=== PATIENT | female | born 2000 | race Caucasian/White ===

== ENCOUNTER → 2021-08-05 | Outpatient (CLI) | payer SELFPAY ==
[2021-08-12 20:18] LABS: HPV Reflexed? NOT INDICATED
== END | disposition home or self-care (01) ==
LOC: LABSPEC 08-09 13:59
PROVIDERS: Visit Provider Obstetrics & Gynecology
DX: Z12.4 Encounter for screening for malignant neoplasm of cervix (principal)
CPT/HCPCS: 88175; G0145

== ENCOUNTER → 2023-10-27 | Outpatient (CLI) | payer SELFPAY ==
--- NOTE | 2023-10-27 09:10 | US_ITS ---
STUDY: FIRST TRIMESTER OBSTETRICAL ULTRASOUND REASON FOR EXAM: Female, 23 years old VIABILITY LMP: September 13, 2023. TECHNIQUE: Transvaginal TECHNICAL QUALITY: Adequate. PRIOR ULTRASOUND: None. FINDINGS: There is visualization of a single gestational sac in a normal intrauterine position. The mean sac diameter (MSD) measures 1.15 cm, indicating an estimated gestational age (EGA) of 6 weeks, 0 days. The gestational sac shape is within normal limits. There is a visualized yolk sac. The yolk sac measures 2.5 mm. The placenta is non-visualized. There is visualization of a live embryo. The crown-rump length (CRL) measures 2.1 mm, indicating an estimated gestational age (EGA) of 6 weeks, 0 days. There is demonstrated cardiac activity with a heart rate of 109 bpm. The estimated gestation age (EGA) by LMP is 6 weeks, 2 days. The estimated date of delivery (QUETA) by LMP is June 19, 2024. The estimated gestation age (EGA) by US is 6 weeks, 0 days. The estimated date of delivery (QUETA) by US is June 21, 2024. The uterus measures 8.8 cm x 6.3 cm x 4.7 cm. There is no demonstrated uterine fibroid. The cervix is closed. The right ovary measures 3.1 cm x 2.1 cm x 2.4 cm. There is no right ovarian cyst. There is no visualized right adnexal mass or complex lesion. The left ovary measures 3.2 cm x 2.8 cm x 2.5 cm. 2 cysts are seen in the left ovary. The larger cyst measures 2.5 cm x 2.2 cm x 2.3 cm. There is no visualized left adnexal mass or complex lesion. There is no fluid in the cul de sac. US/Transvaginal w/Preg US IMPRESSION: Single live uterine gestation with mean gestational age of 6 weeks. Left ovarian cysts. Electronically Signed: Deshaun Fatima MD at 14:54 EDT ,
== END | disposition home or self-care (01) ==
LOC: OPUS 09:09
PROVIDERS: Referring Provider Advanced Practice Midwife; Visit Provider Advanced Practice Midwife
DX: N91.2 Amenorrhea, unspecified (principal)
CPT/HCPCS: 76817

== ENCOUNTER → 2023-11-15 | Outpatient (CLI) | payer SELFPAY ==
[2023-11-18 11:13] LABS: Chlamydia By Nucleic Acid AMP Negative (Negative); Gonococcus By Nucleic Acid AMP Negative (Negative)
== END | disposition home or self-care (01) ==
LOC: LABSPEC 15:24
PROVIDERS: Referring Provider Advanced Practice Midwife; Visit Provider Advanced Practice Midwife
DX: Z34.00 Encounter for supervision of normal first pregnancy, unspecified trimester (principal)
CPT/HCPCS: 87086; 87088; 87491; 87591

== ENCOUNTER → 2023-12-13 | Outpatient (CLI) | payer SELFPAY ==
[2023-12-13 17:05] LABS: Absolute Neutrophil Count 7.6 X10^3/uL (2.0-7.7); Basophil# 0.05 X10^3/uL; Basophil% 0.5 % (0-1); Eosinophils% 0.9 % (0-5); Hematocrit 38.2 % (37-47); Hemoglobin 13.2 g/dL (12.0-15.0); Lymphocyte % 21.5 % (19-41); Mean Corp Hgb Conc 34.6 g/dL (32-36); Mean Corpuscular Volume 86.8 fL (81-99); Mean Platelet Vol. 10.1 fl (6.2-12.0); Monocyte# 0.64 X10^3/uL; NRBC Flagged by Analyzer 0 % (0-5); Neutrophil # 7.55 X10^3/uL (2.7-7.7); Neutrophil % 70.6 % (47-70); Platelet Count 261 K/mm3 (150-450); RBC Distribution Width CV 12.2 % (11.6-14.6); RBC Distribution Width SD 39.1 fl (35.1-43.9); White Blood Count 10.7 K/mm3 (4.4-11.0)
[2023-12-13 17:31] LABS: Hemoglobin A1c 4.8 % (3.8-5.6)
[2023-12-13 17:58] LABS: HIV - WCH Non-Reactive (Nonreactive); Hepatitis B Surface Antigen Non-Reactive (Nonreactive); Hepatitis C Antibody Non-Reactive (Nonreactive); Rubella IgG Reactive (Nonreactive); Syphilis Antibodies Non-reactive
[2023-12-15 10:08] LABS: V-Zoster IgG (Immunity) 3628 index (Immune >165)
== END | disposition home or self-care (01) ==
PROVIDERS: Advanced Practice Midwife; Referring Provider Obstetrics & Gynecology; Visit Provider Obstetrics & Gynecology
DX: Z34.00 Encounter for supervision of normal first pregnancy, unspecified trimester (principal)
CPT/HCPCS: 36415; 83036; 85025; 86703; 86762; 86780; 86787; 86803; 86850; 86900; 86901; 87340

== ENCOUNTER → 2024-03-28 | Outpatient (CLI) | payer SELFPAY ==
[2024-03-28 14:29] LABS: Absolute Lymphocyte Count 1.71 X10^3/uL (0.83-4.51); Absolute Neutrophil Count 10.3 X10^3/uL (2.0-7.7); Basophil# 0.02 X10^3/uL; Basophil% 0.2 % (0-1); Eosinophil# 0.07 X10^3/uL; Eosinophils% 0.6 % (0-5); Hematocrit 35.1 % (37-47); Hemoglobin 12.1 g/dL (12.0-15.0); Lymphocyte # 1.71 X10^3/ul (0.83-4.51); Lymphocyte % 13.6 % (19-41); Mean Corp Hgb Conc 34.5 g/dL (32-36); Mean Corpuscular Hgb 31.7 pg (27.0-32.0); Mean Corpuscular Volume 91.9 fL (81-99); Mean Platelet Vol. 9.7 fl (6.2-12.0); Monocyte% 3.2 % (0-10); NRBC Flagged by Analyzer 0 % (0-5); Neutrophil # 10.27 X10^3/uL (2.7-7.7); Neutrophil % 81.6 % (47-70); Platelet Count 230 K/mm3 (150-450); RBC Distribution Width CV 12.8 % (11.6-14.6); RBC Distribution Width SD 42.4 fl (35.1-43.9); Red Blood Count 3.82 M/mm3 (4.2-5.4); White Blood Count 12.6 K/mm3 (4.4-11.0)
[2024-03-28 15:01] LABS: Glucose Challenge Gest 1H 50g 175 mg/dL (70-140)
[2024-03-28 15:43] LABS: HIV - WCH Non-Reactive (Nonreactive); Syphilis Antibodies Non-reactive
== END | disposition home or self-care (01) ==
LOC: BWCLAB 14:17
PROVIDERS: Nurse Practitioner Women's Health; Referring Provider Obstetrics & Gynecology; Visit Provider Obstetrics & Gynecology
DX: Z34.82 Encounter for supervision of other normal pregnancy, second trimester (principal)
CPT/HCPCS: 36415; 82950; 85025; 86703; 86780

== ENCOUNTER → 2024-04-02 | Outpatient (CLI) | payer SELFPAY ==
[2024-04-02 10:36] LABS: Bedside Glucose 76 mg/dL (74-106)
[2024-04-02 11:35] LABS: Glucose GTT-Gestation. Fasting 82 mg/dL (<105)
[2024-04-02 12:54] LABS: Glucose GTT-Gestational 1 Hr 181 mg/dL (<190)
[2024-04-02 13:19] LABS: Glucose GTT-Gestational 2 Hr 157 mg/dL (<165)
[2024-04-02 13:51] LABS: Glucose GTT-Gestational 3 Hr 135 L (<145)
== END | disposition home or self-care (01) ==
LOC: LAB 10:00
PROVIDERS: Referring Provider Nurse Practitioner Women's Health; Visit Provider Nurse Practitioner Women's Health
DX: O99.810 Abnormal glucose complicating pregnancy (principal); Z3A.00 Weeks of gestation of pregnancy not specified
CPT/HCPCS: 36415; 82951; 82952; 82962

== ENCOUNTER 2024-05-13 11:30 | Outpatient (RCR) | payer SELFPAY | END 2024-05-31 23:59 | LOC: NS 11:30 | PROVIDERS: Referring Provider Nurse Practitioner Women's Health; Visit Provider Nurse Practitioner Women's Health | DX: Z71.3 Dietary counseling and surveillance (principal); O24.419 Gestational diabetes mellitus in pregnancy, unspecified control; Z3A.00 Weeks of gestation of pregnancy not specified | CPT/HCPCS: 97802; 97803 ==

== ENCOUNTER → 2024-05-30 | Outpatient (CLI) | payer SELFPAY | END | disposition home or self-care (01) | PROVIDERS: Referring Provider Obstetrics & Gynecology; Visit Provider Obstetrics & Gynecology | DX: Z34.02 Encounter for supervision of normal first pregnancy, second trimester (principal) | CPT/HCPCS: 87081 ==

== ENCOUNTER → 2024-05-31 | Outpatient (CLI) | payer SELFPAY ==
--- NOTE | 2024-05-31 13:27 | US_ITS ---
PROCEDURE: OB LIMITED WITH BIOMETRICS REASON FOR EXAM: growth. COMPARISON: None. FINDINGS Number: 1 Position: Vertex Placental Position: Posterior and not low-lying. Placental Abnormalities: None. DIMENSIONS: Biparietal Diameter: 8.8 cm: 35 weeks and 4 days: 27 percentile/ Head Circumference: 31.8 cm: 35 weeks and 5 days: 6 percentile/ Abdominal Circumference: 31.5 cm: 35 weeks and 3 days: 21 percentile/ Femur Length: 6.7 cm: 34 weeks and 4 days: 4 percentile/ ESTIMATED WEIGHT: 2660 g ESTIMATED WEIGHT PERCENTILE (24+ weeks): 18 percentile ESTIMATED GESTATIONAL AGE: Baseline: 37 weeks and 0 days By Ultrasound: 35 weeks and 3 days ESTIMATED DATE OF DELIVERY: Baseline: June 21, 2024 By Ultrasound: July 02, 2024 BIOPHYSICAL ASSESSMENT: Amniotic Fluid Volume: Subjectively normal. Amniotic Fluid Index: 17.4 (8-24 cm normal range) Cardiac Motion: 131 beats per minute (average) Trunk and Limb Motion: Present. MATERNAL ANATOMY: Adnexa: Neither maternal ovary is successfully identified. US/OB Limited With Biometrics IMPRESSION: Single live intrauterine gestation with a mean gestational age of 35 weeks and 3 days. Low percentile for head circumference and femur length. Reading Location: [facility]
== END | disposition home or self-care (01) ==
PROVIDERS: Referring Provider Advanced Practice Midwife; Visit Provider Advanced Practice Midwife
DX: O24.419 Gestational diabetes mellitus in pregnancy, unspecified control (principal); Z3A.00 Weeks of gestation of pregnancy not specified
CPT/HCPCS: 76816

== ENCOUNTER 2024-06-21 19:17 | Inpatient (IN) | payer SELFPAY ==
[2024-06-21 19:44] VITALS: BP 105/62; PULSE 89; RESP 16; TEMP 36.5; O2SAT 96
[2024-06-21 19:46] VITALS: BMI 34.5
[2024-06-21] MEDS: Lactated Ringers 1,000 ML 50 ML IV (20:03)
[2024-06-21 20:21] LABS: Absolute Lymphocyte Count 1.55 X10^3/uL (0.83-4.51); Absolute Neutrophil Count 7.1 X10^3/uL (2.0-7.7); Basophil# 0.05 X10^3/uL; Basophil% 0.5 % (0-1); Eosinophil# 0.12 X10^3/uL; Eosinophils% 1.2 % (0-5); Hematocrit 37.1 % (37-47); Hemoglobin 13.2 g/dL (12.0-15.0); Lymphocyte # 1.55 X10^3/ul (0.83-4.51); Lymphocyte % 16.1 % (19-41); Mean Corp Hgb Conc 35.6 g/dL (32-36); Mean Corpuscular Hgb 32.3 pg (27.0-32.0); Mean Corpuscular Volume 90.7 fL (81-99); Mean Platelet Vol. 10.6 fl (6.2-12.0); Monocyte# 0.74 X10^3/uL; Monocyte% 7.7 % (0-10); NRBC Flagged by Analyzer 0 % (0-5); Neutrophil # 7.05 X10^3/uL (2.7-7.7); Neutrophil % 73.5 % (47-70); Platelet Count 178 K/mm3 (150-450); RBC Distribution Width CV 12.4 % (11.6-14.6); RBC Distribution Width SD 40.7 fl (35.1-43.9); Red Blood Count 4.09 M/mm3 (4.2-5.4); White Blood Count 9.6 K/mm3 (4.4-11.0)
[2024-06-21 20:42] LABS: Bedside Glucose 85 mg/dL (74-106)
[2024-06-21 21:11] LABS: Syphilis Antibodies Nonreactive (Nonreactive)
--- NOTE | 2024-06-21 21:31 | HP.PCM.OB_ITS ---
HPI - General General Date of Admission: 06/21/24 HPI Narrative VIMAL LANGFORD, is a 24 F who presents at 40 weeks for IOL due to GDM, diet controlled. active fetus, no vb/lof. occ ctx. Maternal Data Information QUETA Calculator Estimated Delivery Date Method Current WG Current Estimate 06/21/24 Ultrasound #1 40w 0d PFSH PFSH Medical History Maternal varicella, non-immune Early stage of Home Medications ?Medication ?Instructions ?Recorded ?Last Taken ?Type multivit-min no.71-iron fum 28 cap PO 06/21/24 History mg-folate no.1 1 mg-dha 300 mg capsule (PNV-[place]) blood sugar diagnostic (Blood #120 ea 04/02/24 Unknown Rx Glucose Test strips) blood-glucose meter #1 ea 04/02/24 Unknown Rx lancets 30 gauge (Droplet Lancets) #200 ea 04/02/24 Un known Rx ondansetron 4 mg disintegrating 4 mg PO Q6H PRN nausea and 06/20/24 06/20/24 Rx tablet vomiting #30 tabs Allergy/AdvReac Type Severity Reaction Status Date / Time No Known Allergies Allergy Verified 06/21/24 19:56 Social History adopted: No household members: spouse current occupational status: employed current occupation: [employer] pets and animals: Yes pets and animals: dog(s) history of recent travel: Yes out of state: No out of country: No sexually active: Yes Smoking Status: Never smoker alcohol intake: current alcohol intake frequency: holidays/special occasions only details: Not while substance use type: does not use well-balanced diet: about half the time caffeine: Yes Type: carbonated beverages Number of servings: 1 eating out: 1-3 times/week during the past year weight has: remained stable what type of physical activity do you participate in: none frequency: does not exercise devi/anabaptism: Taoist seatbelt use: always do you feel safe at home: Yes additional social history: - Jeared- Tariq History 1 Elective abortions Hx Para 0 Spontaneous abortions Hx # Term Pregnancies Ectopic pregnancies Hx # Pregnancies Multiple births # of living children Visit Details Expected Delivery Route/Plan Labor Preferences- CB/BF classes: no labor support person: Jequita labor intervention preferences: [] pain management options preferred: hopes for limited intervention cut cord/dad catch: maybe : yes PP control planned: [] discussed possible routes of delivery and associated risks: [] special requests: [] Plans Covid status: [] Flu vaccine: given Tdap vaccine: given Rhogam: NA LARC form signed: yes Problem list reviewed and updated with the most current plan of care details and appropriate orders placed. Relevant counseling for the gestational age provided. Continue routine care and follow up unless otherwise noted in visit notes/problem list details OB Flowsheet Initial Weight: 156 lb Date -?-?-?-?-?-?-?-?-?-?-?-?- EGA Weight BP Urine Prot -?-?-?-?-?-?-?-?-?-?-?-?- Glucose FHR FuHt Pres Dilation -?-?-?-?-?-?-?-?-?-?-?-?- Effaced St Visit Note 11/15/23 -?-?-?-?-?-?-?-?-?-?-?-?- 8w 5d 156 lb (+0 oz) 103/65 -?-?-?-?-?-?-?-?-?-?-?-?- 170 -?-?-?--?-?-?-?-?-?-?-?-?- KW- NOB in [facility] pe.US done at [facility]. Esa TURNERT. 12/13/23 -?-?-?-?-?-?-?-?-?-?-?-?- 12w 5d 152 lb (-4 lb) 107/70 Negative -?-?-?-?-?-?-?-?-?-?-?-?- Negative 150 -?-?-?-?-?-?-?-?-?-?-?-?- SM- no vb crampi ng 01/08/24 -?-?-?-?-?-?-?-?-?-?-?-?- 16w 3d 151 lb (-5 lb) 109/68 Negative -?-?-?-?-?-?-?-?-?-?-?-?- Negative 150 -?-?-?-?-?-?-?-?-?-?-?-?- kw- no vb/ cramp ing. has anatomy US scheduled. blood work reviewed from last visit. kw- no vb/ cramping. has arin elaine US ordered. blood work reviewed from last visit. many questions answered today 02/07/24 -?-?-?-?-?-?-?-?-?-?-?-?- 20w 5d 156 lb 6 oz (+6 oz) 103/69 Negative -?-?-?-?-?-?-?-?-?-?-?-?- Negative 150 -?-?-?-?-?-?-?-?-?-?-?-?- JV- no lof, vagi nal bleeding , or cramping. Anatomy scan shows a low lying placenta 1.1 cm from os. work restriction letter given. pelvic rest discussed. 03/04/24 -?-?-?-?-?-?-?-?-?-?-?-?- 24w 3d 158 lb 8 oz (+2 lb 8 oz) 100/68 Negative -?-?-?-?-?-?-?-?-?-?-?-?- Negative 147 24 -?-?-?-?-?-?-?-?-?-?--?-?- -No VB, LOFAna M means FM. Larc. Flu given 03/28/24 -?-?-?-?-?-?-?-?-?-?-?-?- 27w 6d 163 lb 6 oz (+7 lb 6 oz) 109/70 Negative -?-?-?-?-?-?-?-?-?-?-?-?- Negative 141 27 -?-?-?-?-?-?-?-?-?-?-?-?- -No VB, LOFAna M shafferies concerns. 28 wk labs pending 04/11/24 -?-?-?-?-?-?-?--?-?-?-?-?- 29w 6d 166 lb (+10 lb) 105/64 Negative -?-?-?-?-?-?-?-?-?-?-?-?- Negative 147 29 -?-?-?-?-?-?-?-?-?-?-?-?- JV- fasting gluc ose levels are all at or below 95/96. pt to eat more fat/protein before bedtime. normal 2 hr pp. no lof, vaginal bleeding, or dec fm. 04/24/24 -?-?-?-?-?-?-?-?-?-?-?-?- 31w 5d 168 lb 5 oz (+12 lb 5 oz) 110/70 Negative -?-?-?-?-?-?-?-?-?-?-?-?- Negative 145 32 -?-?-?-?-?-?-?-?-?-?-?-?- KW- no vb/lof/ct x. good fm BS reviewed and fastings are around 88/90. doing well. 36 week US ordered. 05/08/24 -?-?-?-?-?-?-?-?-?-?-?-?- 33w 5d 173 lb 4 oz (+17 lb 4 oz) 98/66 Negative -?-?-?-?-?-?-?-?-?-?-?-?- Negative 132 34 -?-?-?-?-?-?-?-?-?-?-?-?- MH-No VB, LOF> G ood FM. BS reviewed and good control. States has helped seeing dietitian 05/23/24 -?-?-?-?-?-?-?-?-?-?-?-?- 35w 6d 173 lb (+17 lb) 105/67 Negative -?-?-?-?-?-?--?-?-?-?-?-?- Negative 140 35 -?-?-?-?-?-?-?-?-?-?-?-?- SM- no vb lof go od fm nr oegualr ctx discussed tdap BS controlled US scheduled 05/30/24 -?-?-?-?-?-?-?-?-?-?-?-?- 36w 6d 174 lb (+18 lb) 114/77 -?-?-?-?-?-?-?-?-?-?-?-?- 145 36 Cephalic 1 -?-?-?-?-?-?-?-?-?-?-?-?- 60 -2 JV- no lof , vaginal bleeding or dec fm. gbs collected today. normal glucose log. has growth scan tomorrow. 06/07/24 -?-?-?-?-?-?-?-?-?-?-?-?- 38w 0d 173 lb 8 oz (+17 lb 8 oz) 108/74 Negative -?-?-?-?-?-?-?-?-?-?-?-?- Negative 145 38 Cephalic 1 .5 -?-?-?-?-?-?-?-?-?-?-?-?- 60 -2 KW- no vb/ lof/ctx. good fm. Rash on belly and legs-possibly Pupps. Benadryl and Claritin. 06/14/24 -?-?-?-?-?-?-?-?-?-?-?-?- 39w 0d 177 lb 6 oz (+21 lb 6 oz) 113/78 Negative -?-?-?-?-?-?-?-?-?-?-?-?- Negative 130 38 Cephalic 1 .5 -?-?-?-?-?-?-?-?-?-?-?-?- 60 -2 KW- no vb/ lof/ctx. good fm. IOL set up for 40 weeks. 06/20/24 -?-?-?-?-?-?-?-?-?-?-?-?- 39w 6d 177 lb 8 oz (+21 lb 8 oz) 97/66 Negative -?-?-?-?-?-?-?-?-?-?-?-?- Negative 145 37 Cephalic 1 .5 -?-?-?-?-?-?-?-?-?-?-?-?- 60 -2 JV- glucos e log reviewed. pt had stomach bug last night. sending in zofran. if no improvement today or tonight she is instructed to come to L&D for fluids prior to her induction in the morning. NST FHR Rate Baby A Baseline: 125 Variability:: Moderate Accelerations:: 15 x 15 Decelerations:: None NST Reactive:: Yes FHR Category:: Category I Uterine Activity:: irregular Vital Signs Vital Signs Vital Signs: 06/21/24 19:44 06/21/24 19:44 06/21/24 19:44 Temperature Temperature Source Pulse Rate 89 Respiratory Rate Blood Pressure 105/62 BP Systolic 105 BP Diastolic 62 Pulse Ox 96 06/21/24 19:44 06/21/24 19:44 06/21/24 19:44 Temperature 97.7 F L Temperature Source Temporal Pulse Rate Respiratory Rate 16 Blood Pressure BP Systolic BP Diastolic Pulse Ox Weight Weight: 176 lb 12.8 oz Body Mass Index (BMI) 34.5 Physical Exam Const alert, oriented x3 and no apparent distress General Appearance: cooperative, comfortable and well kempt Orientation / Consciousness: awake and oriented to person Exam Limitations: no limitations HEENT normocephalic Neck full ROM Chest inspection of chest normal Resp normal respiratory effort, normal air movement and no retractions Effort and Inspection: able to speak in complete sentences and symmetric chest movement Cardio regular rate Peripheral Pulses: pulses 2+ throughout GI normal to inspection, nondistended, normoactive bowel sounds Inspection: gravid no CVA tenderness and appearance of the vagina normal External Female Exam: normal appearance of the urethra; Negative for external lesion OB / External & Speculum: external exam normal Manual OB Exam: estimated gestational size appropriate, presentation cephalic, dilated 1.5, effaced 60 and station -2 Uterus Palpation: Negative for uterus tender Extremity normal to inspection Skin no rashes or lesions noted Neuro deep tendon reflexes 2+ bilaterally and gait normal Motor Exam: strength 5/5 throughout and clonus absent Psych Activity / Motor Behavior: appropriate eye contact Speech: normal speech Labs Labs Labs: Blood Type A POSITIVE Antibody Screen NEGATIVE Hct 37.1 % (37-47) Hgb 13.2 g/dL (12.0-15.0) Obstetrics Ultrasound Syphilis Total Ab Nonreactive (Nonreactive) VZV IgG Antibody 3628 index (Immune >165) Rubella IgG Antibody Reactive (Nonreactive) Hep Bs Antigen Non-Reactive (Nonreactive) Hepatitis C Antibody Non-Reactive (Nonreactive) Chlamydia DNA ([place]AS[place]) Negative (Negative) N.gonorrhoeae DNA (KASIA) Negative (Negative) HIV 1&2 Antibody Non-Reactive (Nonreactive) Glucose 1 Hr 50 gm 175 mg/dL (70-140) H Gest Glucose Tolerance MG/DL Assessment & Plan (1) Encounter for induction of labor: COMMENT: pit/mckeon bulb (2) Gestational diabetes: QUALIFIERS: Gestational diabetes mellitus control: diet-controlled Trimester: third trimester Qualified Code(s): O24.410 - Gestational diabetes mellitus in , diet controlled COMMENT: diet controlled. 36 week growth US, delivery by 40 weeks PLAN: -diabetes protocol for glucose monitoring. (3) Obesity affecting : QUALIFIERS: Trimester: second trimester Obesity type affecting : unspecified obesity Qualified Code(s): O99.212 - Obesity complicating , second trimester COMMENT: HgA1c nl. encouraged healthy weight gain. BMI 30 (4) Supervision of normal first : QUALIFIERS: Trimester: second trimester Qualified Code(s): Z34.02 - Encounter for supervision of normal first , second trimester COMMENT: PRR,, QUETA 06/21/24, boy connie or bryce Jeared (5) : QUALIFIERS: Weeks of gestation: 39 weeks Qualified Code(s): Z3A.39 - 39 weeks gestation of COMMENT: Neg GBS declined genetic & carrier testing, PLAN: Plan Patient presents IOL, plan management for with mckeon bulb/pitocin/AROM. Pain management: plans epidural. GBS negative. Management of any complications: none I have reviewed the [facility] and made any clinically relevant updates. updated on admission, exam and poc.
[2024-06-21] MEDS: Oxytocin 15 Units/NS 250ml 15 UNITS/250 ML IV.SOLN 2 UNITS IV (21:40)
[2024-06-21 21:52] VITALS: BP 96/56; PULSE 89; RESP 20; TEMP 36.7; O2SAT 98
[2024-06-21 22:05] LABS: Bedside Glucose 88 mg/dL (74-106)
[2024-06-21 22:36] VITALS: BP 108/64; PULSE 92; O2SAT 98
[2024-06-21 22:37] VITALS: RESP 16; TEMP 36.6
[2024-06-21 23:50] VITALS: PULSE 89; O2SAT 95
[2024-06-21 23:51] VITALS: BP 97/53; PULSE 85; RESP 16; TEMP 36.4
[2024-06-22] VITALS (64 sets, daily range): BP systolic 91–136; BP diastolic 53–84; PULSE 60–109; RESP 12–19; TEMP 36.4–37.7; O2SAT 93–99
[2024-06-22] MEDS: fentaNYL 100 MCG/2 ML Ampul IV (00:49)
[2024-06-22] MEDS: Lactated Ringers 1,000 ML 50 ML IV (01:27)
[2024-06-22 02:22] LABS: Bedside Glucose 84 mg/dL (74-106)
[2024-06-22] MEDS: fentaNYL-bupivacaine (epidural) 100 ML BAG EPIDURAL ×3 (04:04→15:35)
[2024-06-22] MEDS: Lactated Ringers 1,000 ML 200 ML IV ×4 (04:04→20:08)
[2024-06-22 06:27] LABS: Bedside Glucose 93 mg/dL (74-106)
[2024-06-22] MEDS: LACTATED RINGERS 500 ML 999 ML IV ×3 (08:18→15:05)
[2024-06-22 10:22] LABS: Bedside Glucose 83 mg/dL (74-106)
--- NOTE | 2024-06-22 10:55 | PCM.PN.CNM ---
Subjective Subjective pt comfortable with epidural Objective Data Objective Data Vital Signs: Vital Signs Temp Pulse Resp BP Pulse Ox 98.5 F 82 16 117/72 97 06/22/24 09:55 06/22/24 09:54 06/22/24 09:55 06/22/24 09:54 06/22/24 09:53 Weight: 176 lb 12.8 oz Body Mass Index (BMI) 34.5 Intake & Output: Intake and Output for Last 24 Hours 06/20/24 06/21/24 06/22/24 23:59 23:59 23:59 Intake Total 406.25 / 406.25 2135.36 / 2135.36 Output Total 200 / 200 Balance 406.25 / 406.25 1935.36 / 1935.36 Lab / Micro Data 06/21/24 20:00 Labs: Laboratory Results - last 24 hr 06/21/24 20:00: WBC 9.6, RBC 4.09 L, Hgb 13.2, Hct 37.1, MCV 90.7, MCH 32.3 H, MCHC 35.6, RDW Std Deviation 40.7, RDW Coeff of [place] 12.4, Plt Count 178, MPV 10.6, Immature Gran % (Auto) 1.000 H, Neut % (Auto) 73.5 H, Lymph % (Auto) 16.1 L, [place] % (Auto) 7.7, Eos % (Auto) 1.2, Baso % (Auto) 0.5, Absolute Neuts (auto) 7.1, Absolute Lymphs (auto) 1.55, Nucleated RBC % 0, Syphilis Total Ab Nonreactive, Blood Type A POSITIVE, Antibody Screen NEGATIVE 06/21/24 20:10: POC Glucose 85 06/21/24 21:47: POC Glucose 88 06/22/24 02:00: POC Glucose 84 06/22/24 06:07: POC Glucose 93 06/22/24 10:01: POC Glucose 83 Physical Exam Resp normal respiratory effort and normal air movement Effort and Inspection: able to speak in complete sentences GI normal to inspection, nondistended, normoactive bowel sounds Manual OB Exam: presentation cephalic, dilated 5, effaced 90 and station -1 Amniotic Fluid: clear amniotic fluid Assessment & Plan (1) Encounter for induction of labor: COMMENT: pit/mckeon bulb (2) Gestational diabetes: QUALIFIERS: Gestational diabetes mellitus control: diet-controlled Trimester: third trimester Qualified Code(s): O24.410 - Gestational diabetes mellitus in , diet controlled COMMENT: diet controlled. 36 week growth US, delivery by 40 weeks PLAN: Plan current tracing:cat 1 FHT: Moderate variability reactive [place]: Contractions reviewed tracing abnormalities since last note: cat 2 tracing for prolonged decel to 90-100s 3 minutes- resolving with pit break, repositioning and IV fluid bolus. currently /-1. internal monitors placed. returned to baseline with accels by 1058 A/P: restart pit after 30 minutes of cat 1 tracing
[2024-06-22] MEDS: Amnioinfusion- 0.9% NS 1,000 ML IV.SOLN. 1000 ML INTRA-UTER ×2 (11:38→17:39)
[2024-06-22 14:25] LABS: Bedside Glucose 71 mg/dL (74-106)
[2024-06-22] MEDS: DiphenhydrAMINE 50 MG/ML Syringe IV (15:35)
--- NOTE | 2024-06-22 15:41 | PCM.PN.CNM ---
Objective Data Objective Data Vital Signs: Vital Signs Temp Pulse Resp BP Pulse Ox 98.7 F 67 18 103/58 L 99 06/22/24 15:28 06/22/24 15:32 06/22/24 15:28 06/22/24 15:27 06/22/24 15:32 Weight: 176 lb 12.8 oz Body Mass Index (BMI) 34.5 Intake & Output: Intake and Output for Last 24 Hours 06/20/24 06/21/24 06/22/24 23:59 23:59 23:59 Intake Total 406.25 / 406.25 4138.46 / 4138.46 Output Total 200 / 200 Balance 406.25 / 406.25 3938.46 / 3938.46 Lab / Micro Data 06/21/24 20:00 Labs: Laboratory Results - last 24 hr 06/21/24 20:00: WBC 9.6, RBC 4.09 L, Hgb 13.2, Hct 37.1, MCV 90.7, MCH 32.3 H, MCHC 35.6, RDW Std Deviation 40.7, RDW Coeff of [place] 12.4, Plt Count 178, MPV 10.6, Immature Gran % (Auto) 1.000 H, Neut % (Auto) 73.5 H, Lymph % (Auto) 16.1 L, [place] % (Auto) 7.7, Eos % (Auto) 1.2, Baso % (Auto) 0.5, Absolute Neuts (auto) 7.1, Absolute Lymphs (auto) 1.55, Nucleated RBC % 0, Syphilis Total Ab Nonreactive, Blood Type A POSITIVE, Antibody Screen NEGATIVE 06/21/24 20:10: POC Glucose 85 06/21/24 21:47: POC Glucose 88 06/22/24 02:00: POC Glucose 84 06/22/24 06:07: POC Glucose 93 06/22/24 10:01: POC Glucose 83 06/22/24 14:03: POC Glucose 71 L NST FHR Rate Baby A Baseline: 130 Variability:: Moderate Accelerations:: 15 x 15 Decelerations:: None NST Reactive:: Yes FHR Category:: Category I Uterine Activity:: q2 Assessment & Plan (1) Encounter for induction of labor: COMMENT: pit/mckeon bulb (2) Gestational diabetes: QUALIFIERS: Gestational diabetes mellitus control: diet-controlled Trimester: third trimester Qualified Code(s): O24.410 - Gestational diabetes mellitus in , diet controlled COMMENT: diet controlled. 36 week growth US, delivery by 40 weeks PLAN: Plan s/p mckeon bulb and pitocin. pitocin has been titrated due to tolerance, requiring restarts. current tracing: with mod variability with accels. 1452 with prolong decel x5 minutes to 90s, recovering with position changes, ivf bolus and pitocin break. currently in hands and knee, cervical exam 8-9cm posterior, 7cm anterior with swollen cervix from 11-1oclock FHT: Moderate variability reactive no decelerations category I tracing [place]: q2 Contractions reviewed tracing abnormalities since last note: see above A/P: benadryl iv for cervical swelling intrauterine resuscitation per protocol for cat [address] durand updated on exam, poc and agrees with management.
[2024-06-22 16:24] LABS: Bedside Glucose 74 mg/dL (74-106)
[2024-06-22 17:23] LABS: Bedside Glucose 70 mg/dL (74-106)
[2024-06-22 19:01] LABS: Bedside Glucose 79 mg/dL (74-106)
[2024-06-22 20:08] LABS: Bedside Glucose 81 mg/dL (74-106)
[2024-06-22 21:06] LABS: Bedside Glucose 87 mg/dL (74-106)
[2024-06-22 22:44] LABS: Bedside Glucose 88 mg/dL (74-106)
[2024-06-22 23:16] LABS: Bedside Glucose 93 mg/dL (74-106)
[2024-06-22] MEDS: Acetaminophen 500 MG Tablet PO (23:47)
[2024-06-23] VITALS (43 sets, daily range): BP systolic 94–120; BP diastolic 52–72; PULSE 78–122; RESP 16–18; TEMP 36.1–37.5; O2SAT 96–100
[2024-06-23] MEDS: Oxytocin 15 Units/NS 250ml 15 UNITS/250 ML IV.SOLN 999 UNITS IV (00:10)
[2024-06-23] MEDS: Methylergonovine 0.2 MG/ML Ampul IM (00:12)
[2024-06-23] MEDS: miSOPROStol 200 MCG Tablet 1000 MCG RC (00:12)
[2024-06-23] MEDS: Oxytocin 15 Units/NS 250ml 15 UNITS/250 ML IV.SOLN 83 UNITS IV (00:24)
--- NOTE | 2024-06-23 00:30 | EX.PCM.OBVAG ---
Assessment & Plan (1) (spontaneous vaginal delivery): COMMENT: Lc IOL- GDM. boy: Shawn Maternal Data Information QUETA Calculator Estimated Delivery Date Method Current WG Current Estimate 06/21/24 Ultrasound #1 40w 2d Vaginal Delivery Maternal Presentation Maternal Presentation: at 40 weeks IOL for GDM, s/p pit/mckeon. Type of Induction: Pitocin and Mckeon Bulb Vaginal Delivery Information Procedure Performed: Spontaneous Vaginal Delivery Date of Procedure: 06/23/24 Pre-Procedure Diagnosis: Type of anesthesia: Epidural Estimated Blood Loss: 300 Time of Delivery: 11:59 Findings Description of procedure: Patient began pushing and delivered the head in the FRANKO presentation. The head was delivered atraumatically. The anterior and posterior shoulders delivered without complication followed by the rest of the infant and the infant was placed on the maternal abdomen. Delayed cord clamping was employed for approximately 60 seconds. Cord was clamped and cut and gentle traction was applied to the cord and the placenta delivered spontaneously immediately following it was noted to be intact with three-vessel cord. The perineum and vagina were inspected and noted to have 1st degree laceration repaired with 3-0 vicryl . EBL was 300cc, brisk bleeding noted and cytotec, methergine and pitocin provided to have hemostasis. Patient and tolerated delivery well. Presentation: Vertex Amniotic Membrane Rupture Type: Artificial Amniotic Fluid Description: Clear Placental Delivery Description: Spontaneous Placenta Disposition: [facility] Specimen collected: No Cord Vessel Description: 3 Vessels Cord Entanglement: None A Gender: Male (1 minute): 6 (5 minute): 9 Delayed Cord Clamping: Yes Post Vaginal [place]i Medications given after delivery: IV Pitocin and IM Methergin Laceration: 1st degree Complication Complications: No Procedures Urinary/Genital [id number]: [id number] Vaginal Delivery [facility]
--- NOTE | 2024-06-23 00:33 | DCINST_ITS ---
Discharge Instructions Diet Discharge Diet: No restrictions DC O2, CPAP, BIPAP needs Home O2 Discharge instructions: No Dressing / Incision Discharge Activity: May Not Drive and May Shower May resume sexual activity in: 6 weeks Weight Bearing Status: Full weight bearing Dressing / Incision Call your doctor if your incision/area has: Sudden Increased Bleeding, Increased Pain/ Swelling and Foul Smelling Discharge Call your doctor if you observe: Fever of 101 or Higher, Numbness or Tingling, Change in Color, Inability to urinate, Inability to have a bowel movement, Using more than 1 pad per hour, Shortness of breath, Dizziness, Fainting spells, Chest pain, Calf discomfort and Uncontrolled pain Follow Up Care Please Follow Up With: Marybeth Alicea CNM When: 6 weeks , please call office to make an appointment. Congratulations on the of your baby! Test Results: Test results from this visit will be discussed in further detail at your follow- up appointment, if applicable. Discharge Plan Admission Admit Date/Time: 06/21/24 19:17 Attending Provider: Marybeth Alicea Primary Care Provider: Care PhysicianSadia Primary Discharge Orders/Prescriptions Prescriptions: No Action PNV-[place] 28-1-300 mg capsule PO ondansetron 4 mg tablet,disintegrating 4 mg PO Q6H PRN (Reason: nausea and vomiting) Qty: 30 0RF (DME) Blood Glucose Test Strip See Rx Instructions .ROUTE .MEDSUPPLY Qty: 120 6RF Rx Instructions: Check blood sugars Fasting and 2 hours after breakfast, lunch, and dinner. (DME) blood-glucose meter Misc See Rx Instructions .ROUTE .MEDSUPPLY Qty: 1 0RF Rx Instructions: As directed (DME) lancets [Droplet Lancets] 30 gauge misc See Rx Instructions .ROUTE .MEDSUPPLY Qty: 200 6RF Rx Instructions: Check blood sugars fasting and 2 hours after breakfast, lunch, and supper. Referrals / Follow Up: Care Physician,Sadia Primary [Primary Care Provider] -
[2024-06-23 02:13] LABS: Bedside Glucose 86 mg/dL (74-106)
--- NOTE | 2024-06-23 10:54 | PCM.PN.CNM ---
Subjective Subjective Patient doing well without complaints. Tolerating PO. Ambulating and voiding without difficulty. Feeding well. Denies chest pain, shortness of breath, calf pain/swelling, fevers, chills, lightheadedness. Objective Data Objective Data Vital Signs: Vital Signs Temp Pulse Resp BP Pulse Ox O2 Del Method 99.2 F H 112 H 16 100/59 L 97 Room Air 06/23/24 08:52 06/23/24 08:52 06/23/24 08:52 06/23/24 08:52 06/23/24 08:52 06/23/24 08:52 Oxygen Delivery Method Room Air Weight: 176 lb 12.8 oz Body Mass Index (BMI) 34.5 Intake & Output: Intake and Output for Last 24 Hours 06/21/24 06/22/24 06/23/24 23:59 23:59 23:59 Intake Total 406.25 / 406.25 5655.19 / 5655.19 1340 / 1340 Output Total 600 / 600 300 / 300 Balance 406.25 / 406.25 5055.19 / 5055.19 1040 / 1040 Lab / Micro Data 06/21/24 20:00 Labs: Laboratory Results - last 24 hr 06/22/24 14:03: POC Glucose 71 L 06/22/24 16:03: POC Glucose 74 06/22/24 17:02: POC Glucose 70 L 06/22/24 18:23: POC Glucose 79 06/22/24 19:48: POC Glucose 81 06/22/24 20:44: POC Glucose 87 06/22/24 21:59: POC Glucose 88 06/22/24 22:57: POC Glucose 93 06/23/24 01:50: POC Glucose 86 Physical Exam Const alert and oriented x3 Chest inspection of chest normal and inspection of breasts normal Resp normal respiratory effort and normal air movement Cardio regular rate and regular rhythm GI normal to inspection, nondistended, normoactive bowel sounds Uterus Palpation: uterus fundus firm Extremity normal to inspection, full ROM and no pedal edema Skin no rashes or lesions noted Psych mental status grossly normal Assessment & Plan (1) (spontaneous vaginal delivery): COMMENT: Lc IOL- GDM. boy: Shawn (2) Gestational diabetes: QUALIFIERS: Gestational diabetes mellitus control: diet-controlled Trimester: third trimester Qualified Code(s): O24.410 - Gestational diabetes mellitus in , diet controlled COMMENT: diet controlled. 36 week growth US, delivery by 40 weeks PLAN: Plan s/p PPD # 1 1. routine post delivery care 2. breast feeding- support given. to see today for additional support due to blood sugars. 3. rh positive 4. rubella immune 5. plan d/c home tomorrow
[2024-06-23] MEDS: Naproxen 500 MG Tablet PO (18:03)
[2024-06-23] MEDS: 0.9% Saline Lock 10 ML Syringe IV (18:03)
[2024-06-24] VITALS (11 sets, daily range): BP systolic 99–109; BP diastolic 50–67; PULSE 79–98; RESP 16; TEMP 36.1–36.7; O2SAT 97–99
[2024-06-24] MEDS: Naproxen 500 MG Tablet PO (03:04)
[2024-06-24] MEDS: 0.9% Saline Lock 10 ML Syringe IV (03:06)
[2024-06-24 06:26] LABS: Bedside Glucose 86 mg/dL (74-106)
--- NOTE | 2024-06-24 08:52 | PN.OBGYN_ITS ---
Subjective Subjective Patient doing well without complaints. Tolerating PO. Ambulating and voiding without difficulty. Feeding well. Denies chest pain, shortness of breath, calf pain/swelling, fevers, chills, lightheadedness. Objective Data Objective Data Vital Signs: Vital Signs Temp Pulse Resp BP Pulse Ox O2 Del Method 97.5 F L 79 16 99/50 L 98 Room Air 06/24/24 03:45 06/24/24 08:47 06/24/24 03:45 06/24/24 08:46 06/24/24 08:47 06/24/24 03:45 Oxygen Delivery Method Room Air Weight: 176 lb 12.8 oz Body Mass Index (BMI) 34.5 Intake & Output: Intake and Output for Last 24 Hours 06/22/24 06/23/24 06/24/24 23:59 23:59 23:59 Intake Total 5655.19 / 5655.19 1340 / 1340 Output Total 600 / 600 2400 / 2400 Balance 5055.19 / 5055.19 -1060 / -1060 Lab / Micro Data 06/21/24 20:00 Labs: Laboratory Results - last 24 hr 06/24/24 06:01: POC Glucose 86 ROS Constitutional Constitutional: Denies chills, fatigue, fever(s), poor appetite or weakness Eyes Eyes: Denies blurry vision, change in vision, seeing flashes or spots in vision ENT HEENT: Denies dizziness, headache(s), loss taste/smell or sore throat Cardiovascular Cardiovascular: Denies chest pain, dizziness, dyspnea, irregular heart rhythm, palpitations or rapid heart rate Respiratory/Chest Respiratory/Chest: Denies chest tightness, cough, dyspnea or breast pain Gastrointestinal Gastrointestinal: Denies abdominal pain, constipation or vomiting Genitourinary Genitourinary: Denies dysuria or flank pain Musculoskeletal Musculoskeletal: Denies difficulty walking, joint pain, limited range of motion or numbness Neurologic Neurologic: Denies abnormal movements, abnormal speech, dizziness, numbness, seizure-like activity or syncope Psychiatric Psychiatric: Denies anxiety, behavioral changes, change in appetite, confusion, depression or suicidal thoughts Physical Exam Const alert, oriented x3 and no apparent distress General Appearance: cooperative and comfortable Resp normal respiratory effort Cardio regular rate GI normal to inspection, nondistended, normoactive bowel sounds GI Narrative: uterus is firm below umbilicus Palpation: soft Back/Spine no CVA tenderness and thoraco-lumbar ROM normal Extremity normal to inspection, no clubbing, cyanosis or edema, no calf tenderness and no pedal edema Psych mental status grossly normal, thought process normal, cooperative, affect normal, speech normal, activity/motor behavior normal, denies homicidal ideation and denies suicidal ideation Assessment & Plan (1) (spontaneous vaginal delivery): COMMENT: Lc IOL- GDM. boy: Connie (2) Gestational diabetes: QUALIFIERS: Gestational diabetes mellitus control: diet-controlled Trimester: third trimester Qualified Code(s): O24.410 - Gestational diabetes mellitus in , diet controlled COMMENT: diet controlled. 36 week growth US, delivery by 40 weeks (3) Obesity affecting : QUALIFIERS: Trimester: second trimester Obesity type affecting : unspecified obesity Qualified Code(s): O99.212 - Obesity complicating , second trimester COMMENT: HgA1c nl. encouraged healthy weight gain. BMI 30 (4) Supervision of normal first : QUALIFIERS: Trimester: second trimester Qualified Code(s): Z34.02 - Encounter for supervision of normal first , second trimester COMMENT: PRR,, QUETA 06/21/24, boy connie or bryce Jeared (5) : QUALIFIERS: Weeks of gestation: 39 weeks Qualified Code(s): Z 3A.39 - 39 weeks gestation of COMMENT: Neg GBS declined genetic & carrier testing, PLAN: Plan s/p PPD # 1 delivered at 11:59 pm 1. routine post delivery care 2. breast feeding- support given 3. rh positive 4. rubella immune
[2024-06-24] MEDS: Acetaminophen 500 MG Tablet 1000 MG PO (09:11)
--- NOTE | 2024-06-24 19:52 | CASEMGMT ---
Assessment for the /[place] Social Work Assessment Labor and Delivery Unit? Date of Referral: ?06/25/2024 Time of Referral:? 10:40am Referred By: Nixon Date of Intervention: ??06/25/2024 Time of Intervention:? 11:30am Reason for Referral: Discharge Planning/Resources RONALD completed chart review and acknowledges social work consult for discharge planning and resources.? SW presented to bedside and introduced self to mother of baby (MOB- Noa) and father of baby 9FOB-Jeared).? History obtained from: medical records, MOB and FOB Household composition:? MOB reports that she is living with FOB and baby,? no one else lives in the home.? MOB denies any concerns or issues with housing.?? Patient's parent/guardian status:? ?MOB state that her and FOB have been for 3 years.? This is first child for both MOB and FOB.? MOB and FOB present as having a healthy relationship, FOB respectful of MOB and MOB asked for FOB opinion on certain matters.? Medical History: (mom?s and baby?s stats)? PETE is 24 year old female who is 1, para 0- now 1 following labor and delivery.? MOB received care through [facility].? MOB delivered on 06/23/2024 at 40 weeks 2 days gestation. Baby xena Medina, was born weighing 6 lobs, 9 ounces with ?s of 6 and 9 at one and five minutes of life respectively.? Educational Status: ??MOB reported that she went to school through the 8th grade, as she was raised [facility].? FOB stated that he graduated from High School.?? FOB reports that he has dyslexia.? Financial Status: MOB reported that up until beginning of May, she had been working in a [employer].? FOB works for a [employer].? FOB reports that MOB will be able to stay home as he is financially able to support their family.?? MOB reports that she is happy that she is able to stay home with baby.? Infant Supplies:?? MOB and FOB report to having all necessary baby supplies including care seat, safe sleep space, clothes, diapers and wipes.? Childcare/Caregiver(s):? MOB will be primary aged or disabled carer of baby.? FOB reports that he will be home for one week.? MOB reports when JHOAN goes back to work , that her mother will be coming to help care for baby.? Transportation:?? MOB and FOB both drive, both report having reliable transportation Programs/Agencies Involved: ???MOB and FOB were both educated on Help [facility] program and consented to referral being made.? Referral made on this day.? No other agencies are involved at this time.? Children Services/Legal Issues:??? No legal issues with either FOB or MOB Behavioral Health Issues: ??Mental Health History: ?MOB and FOB both deny any mental health history themselves or with members of their families. ???Substance Use History: Dad reports to using alcohol more ?habitual? prior to MOB getting .? FOB reports that his alcohol consumption has decreased to ?just occasional?? MOB reports to no alcohol use during duration of and does not plan to use alcohol at this time.? Both MOB and FOB expressed understanding.? Father of baby also reports to occasional marijuana and cigarette use. Both FOB and MOB educated to ensure baby has a sober caregiver if one is planning on consuming alcohol or marijuana.? FOB educated on not smoking around infant and to wash hands, change clothing prior to holding baby after smoking.?Family History:? MOB and FOB deny any family history of drug or alcohol abuse.?Maternal and Infant Drug Screens: Not indicated Family/Social Stressors:? ??MOB and FOB deny any family or social stressors Support Systems: ??MOB and FOB identify both their mothers as supportive, JHOAN also states that his sister and aunts are a source of support Depression and Anxiety/Shaken Baby/Safe Sleeping:? SW educated MOB on signs and symptoms of baby blue and mood and anxiety disorders to be mindful of during this period.? SW provided literature for MOB to review regarding these topics.? MOB was receptive to information provided.? Sw also educated MOB and FOB on shaken baby prevention, and ABCs of safe sleep. Both expressed understanding. ASSESSMENT:? MOB and baby admitted following labor and delivery. Upon entering room, baby was awake and in bassinette beside mom.? Baby did begin to cry during assessment, SW asked if MOB thought it may be time to feed baby, MOB looked toward FOB, FOB answered with last time fed and how baby did during feeding time.? MOB and FOB reeducated on feeding baby every 2- 3 hours.? SW verified that MOB has a smart phone, MOB encouraged to download khai to track and remind of feeding times.? MOB receptive to usage of khai.? MOB also encouraged to utilize help with feeding while at [facility] and to make a follow up appt with the clinical science consultant.? MOB and FOB were educated on [facility], both receptive to referral, same was made by RONALD.? SW confirmed that FOB was able to read and comprehend literature provided, FOB stated that he was able to read information as long as he took his time. Both parents were engaged and receptive to information provided and conversation with SW.? PLAN: ??MOB and baby to be discharged when medically ready.? MOB and FOB were provided with literature? regarding Help [facility], safe sleep, shaken baby prevention, and education regarding mood and anxiety disorders to be aware of.? No other services requested or indicated. Elda Caldwell, HORTICULTURAL THERAPIST, EDGE KITTER
[2024-06-25 02:27] VITALS: BP 102/57; PULSE 88; RESP 16; TEMP 36.6
--- NOTE | 2024-06-25 08:02 | PN.OBGYN_ITS ---
Subjective Subjective Patient doing well without complaints. Tolerating PO. Ambulating and voiding without difficulty. Feeding well. Denies chest pain, shortness of breath, calf pain/swelling, fevers, chills, lightheadedness. Objective Data Objective Data Vital Signs: Vital Signs Temp Pulse Resp BP Pulse Ox O2 Del Method 97.8 F 88 16 102/57 L 98 Room Air 06/25/24 02:27 06/25/24 02:27 06/25/24 02:27 06/25/24 02:27 06/24/24 20:20 06/25/24 02:27 Oxygen Delivery Method Room Air Weight: 176 lb 12.8 oz Body Mass Index (BMI) 34.5 Intake & Output: Intake and Output for Last 24 Hours 06/23/24 06/24/24 06/25/24 23:59 23:59 23:59 Intake Total 1340 / 1340 Output Total 2400 / 2400 400 / 400 300 / 300 Balance -1060 / -1060 -400 / -400 -300 / -300 Lab / Micro Data Attestation: I reviewed the patient's lab results. 06/21/24 20:00 ROS Constitutional Constitutional: Reports systems reviewed and no addt'l complaints, except as documented; Denies anorexia or headache(s) Cardiovascular Cardiovascular: Reports systems reviewed and no addt'l complaints, except as documented; Denies dizziness, dyspnea, nausea or tachypnea Respiratory/Chest Respiratory/Chest: Reports systems reviewed and no addt'l complaints, except as documented; Denies cough, dyspnea, shortness of breath at rest or tachypnea Gastrointestinal Gastrointestinal: Reports systems reviewed and no addt'l complaints, except as documented; Denies abdominal pain, constipation or nausea Genitourinary Genitourinary: Reports systems reviewed and no addt'l complaints, except as documented; Denies burning urination, difficulty urinating, dysuria, urinary frequency or urinary incontinence Musculoskeletal Musculoskeletal: Reports systems reviewed and no addt'l complaints, except as documented Integumentary Integumentary: Reports systems reviewed and no addt'l complaints, except as documented Neurologic Neurologic: Reports systems reviewed and no addt'l complaints, except as documented; Denies abnormal speech, dizziness or headache(s) Psychiatric Psychiatric: Reports systems reviewed and no addt'l complaints, except as documented Endocrine Endocrinology: Reports systems reviewed and no addt'l complaints, except as documented Hematologic/Lymphatic Hematologic/Lymphatic: Reports systems reviewed and no addt'l complaints, except as documented Physical Exam Const alert, oriented x3 and no apparent distress Neck full ROM Resp normal respiratory effort, normal air movement and no retractions Effort and Inspection: able to speak in complete sentences and symmetric chest movement GI soft to palpation Bladder / Kidney Exam: bladder normal to palpation Uterus Palpation: uterus fundus firm Extremity normal to inspection and full ROM Psych mental status grossly normal, thought process normal and cooperative Assessment & Plan (1) (spontaneous vaginal delivery): COMMENT: Lc IOL- GDM. boy: Connie PLAN: s/p PPD # 3 1. routine post delivery care 2. breast feeding- support given 3. rh positive 4. rubella immune 5. Discharge home (2) Encounter for induction of labor: COMMENT: pit/mckeon bulb (3) Gestational diabetes: QUALIFIERS: Gestational diabetes mellitus control: diet-controlled Trimester: third trimester Qualified Code(s): O24.410 - Gestational diabetes mellitus in , diet controlled COMMENT: diet controlled. 36 week growth US, delivery by 40 weeks (4) Obesity affecting : QUALIFIERS: Trimester: second trimester Obesity type affecting : unspecified obesity Qualified Code(s): O99.212 - Obesity complicating , second trimester COMMENT: HgA1c nl. encouraged healthy weight gain. BMI 30 (5) Supervision of normal first : QUALIFIERS: Trimester: second trimester Qualified Code(s): Z34.02 - Encounter for supervision of normal first , second trimester COMMENT: PRR,, QUETA 06/21/24, boy connie or bryce Jeared (6) : QUALIFIERS: Weeks of gestation: 39 weeks Qualified Code(s): Z 3A.39 - 39 weeks gestation of COMMENT: Neg GBS declined genetic & carrier testing, Charges/Coding Multi Select Codes Urinary/Genital Urinary/Genital CPT Codes: No Charge
--- NOTE | 2024-06-25 08:07 | DS.PCM_ITS ---
Providers Date of Admission: 06/21/24 Date of Discharge: 06/25/24 Primary Care Physician: No Primary Care Phys Reason For Visit: VAG Diagnosis Discharge Diagnosis (1) (spontaneous vaginal delivery): Status: Acute Code(s): O80 - Encounter for full-term uncomplicated delivery Plan: s/p PPD # 3 1. routine post delivery care 2. breast feeding- support given 3. rh positive 4. rubella immune 5. Discharge home (2) Encounter for induction of labor: Status: Acute Code(s): Z34.90 - Encounter for supervision of normal , unspecified, unspecified trimester (3) Gestational diabetes: Status: Acute Code(s): O24.419 - Gestational diabetes mellitus in , unspecified control Qualifiers: Gestational diabetes mellitus control: diet-controlled Trimester: third trimester Qualified Code(s): O24.410 - Gestational diabetes mellitus in , diet controlled (4) Obesity affecting : Status: Acute Code(s): O99.210 - Obesity complicating , unspecified trimester Qualifiers: Trimester: second trimester Obesity type affecting : u nspecified obesity Qualified Code(s): O99.212 - Obesity complicating , second trimester (5) Supervision of normal first : Status: Acute Code(s): Z34.00 - Encounter for supervision of normal first , unspecified trimester Qualifiers: Trimester: second trimester Qualified Code(s): Z34.02 - Encounter for supervision of normal first , second trimester (6) : Status: Acute Code(s): Z34.90 - Encounter for supervision of normal , unspecified, unspecified trimester Qualifiers: Weeks of gestation: 39 weeks Qualified Code(s): Z3A.39 - 39 weeks gestation of Medications at Discharge Home Medications multivit-min no.71-iron fum 28 mg-folate no.1 1 mg-dha 300 mg capsule (PNV- [place]) cap PO 11/03/23 blood sugar diagnostic (Blood Glucose Test strips) #120 ea 04/02/24 blood-glucose meter #1 ea 04/02/24 lancets 30 gauge (Droplet Lancets) #200 ea 04/02/24 ondansetron 4 mg disintegrating tablet 4 mg PO Q6H PRN nausea and vomiting #30 tabs 06/20/24 Hospital Course Operations None Procedures None Summary of Care Provided Minutes Spent on Discharge: 30 Physical Exam Const alert, oriented x3 and no apparent distress Neck full ROM Resp normal respiratory effort, normal air movement and no retractions Effort and Inspection: able to speak in complete sentences and symmetric chest movement GI soft to palpation Inspection: incision intact Bladder / Kidney Exam: bladder normal to palpation Uterus Palpation: uterus fundus Extremity normal to inspection and full ROM Psych mental status grossly normal, thought process normal and cooperative Weight / BMI Weight Weight: 176 lb 12.8 oz Body Mass Index (BMI) 34.5 ABG / Lab / Microbiology Data 06/21/24 20:00 D/C Instructions Discharge Diet: No restrictions May shower in (days): 0 May resume sexual activity in: 6 weeks Weight Bearing Status: Full weight bearing Call your doctor if your incision/area has: Sudden Increased Bleeding, Increased Pain/ Swelling and Foul Smelling Discharge Call your doctor if you observe: Fever of 101 or Higher, Numbness or Tingling, Change in Color, Inability to urinate, Inability to have a bowel movement, Using more than 1 pad per hour, Shortness of breath, Dizziness, Fainting spells, Chest pain, Calf discomfort and Uncontrolled pain Suture Line Care: Avoid Pulling/Pushing and Avoid Pinching/Bending Cleanse incision/area with: Soap & Water and Keep Dressing Clean & Dry DC O2, CPAP, BIPAP Needs Home O2 Discharge instructions: No Please Follow Up With: Marybeth Alicea CNM When: 6 weeks , please call office to make an appointment. Congratulations on the of your baby! Meaningful Use Info Meaningful Use Meaningful Use Diagnoses (Choose all that apply): None applicable Ischemic Stroke Statin Dosing Therapy Reference: STATIN DOSE THERAPY REFERENCE: * Patients > 75 years receive moderate or high dose statin therapy. * Patients 75 years or YOUNGER should receive HIGH intensity statin dose unless contraindicated. You will be required to document reason for non-treatment if statin daily dose does not meet guidelines. HIGH DOSE STATIN THERAPY DAILY Atorvastatin > than or = to 40 mg Rosuvastatin > than or = to 20 mg Amlodipine + Atorvastatin > than or = to 2.5/40 mg Ezetimibe + Simvastatin 10/80 mg Simvastatin 80mg Discharge Plan Admission Admit Date/Time: 06/21/24 19:17 Attending Provider: Marybeth Alicea Primary Care Provider: Care Physician,Sadia Primary Discharge Orders/Prescriptions Prescriptions: No Action PNV-[place] 28-1-300 mg capsule PO ondansetron 4 mg tablet,disintegrating 4 mg PO Q6H PRN (Reason: nausea and vomiting) Qty: 30 0RF (DME) Blood Glucose Test Strip See Rx Instructions .ROUTE .MEDSUPPLY Qty: 120 6RF Rx Instructions: Check blood sugars Fasting and 2 hours after breakfast, lunch, and dinner. (DME) blood-glucose meter Misc See Rx Instructions .ROUTE .MEDSUPPLY Qty: 1 0RF Rx Instructions: As directed (DME) lancets [Droplet Lancets] 30 gauge misc See Rx Instructions .ROUTE .MEDSUPPLY Qty: 200 6RF Rx Instructions: Check blood sugars fasting and 2 hours after breakfast, lunch, and supper. Referrals / Follow Up: Care Physician,No Primary [Primary Care Provider] - Disposition Disposition (needs filled in before D/C Order can be placed): Home, Self Care Charges/Coding Multi Select Codes Urinary/Genital Urinary/Genital CPT Codes: No Charge
[2024-06-25 09:17] VITALS: BP 103/65; PULSE 87
[2024-06-25 09:18] VITALS: BP 103/65; PULSE 87; RESP 17; TEMP 36.9
== END 2024-06-25 11:30 | disposition home or self-care (01) | DRG 807 ==
PROVIDERS: Advanced Practice Midwife; Admitting Provider Registered Nurse; Referring Provider Registered Nurse; Visit Provider Registered Nurse
DX: O24.420 Gestational diabetes mellitus in childbirth, diet controlled (principal); Z37.0 Single live birth; O70.0 First degree perineal laceration during delivery; O99.214 Obesity complicating childbirth; O76 Abnormality in fetal heart rate and rhythm complicating labor and delivery; Z3A.40 40 weeks gestation of pregnancy
CPT/HCPCS: 59025; 59050; 82962; 85025; 86780; 86850; 86900; 86901; 99221; A4216; G0378

== ENCOUNTER → 2024-07-30 | Outpatient (CLI) | payer SELFPAY ==
[2024-08-02 21:33] LABS: HPV Reflexed? NOT INDICATED
== END | disposition home or self-care (01) ==
LOC: LABSPEC 16:10
PROVIDERS: Referring Provider Nurse Practitioner Women's Health; Visit Provider Nurse Practitioner Women's Health
DX: Z12.4 Encounter for screening for malignant neoplasm of cervix (principal)
CPT/HCPCS: 88175; G0145

== ENCOUNTER → 2024-08-09 | Outpatient (CLI) | payer SELFPAY ==
[2024-08-09 10:57] LABS: Glucose GTT- Fasting 90 mg/dL (70-99)
[2024-08-09 12:55] LABS: Glucose GTT-30 minutes 154 mg/dL (110-170)
[2024-08-09 13:17] LABS: Glucose GTT- 1 Hour 152 mg/dL (120-170)
[2024-08-09 16:29] LABS: Glucose GTT- 2 Hour 109 mg/dL (70-120)
== END | disposition home or self-care (01) ==
PROVIDERS: Referring Provider Nurse Practitioner Women's Health; Visit Provider Nurse Practitioner Women's Health
DX: Z86.32 Personal history of gestational diabetes (principal)
CPT/HCPCS: 36415; 82951; 82952